=== PATIENT | female | born 1990 | race Caucasian/White ===

== ENCOUNTER 2019-08-17 16:45 | Observation (INO) | payer BC, MEDICAID ==
[~2019-08-17] VITALS: Ht 170.2 cm; Wt 70.8 kg
[2019-08-17 16:52] VITALS: BP 149/78
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
--- NOTE | 2019-08-17 17:04 | NUR ---
Dr. Cochran is evaluating the patient at bedside.
[2019-08-17] MEDS ORDERED: ACETAMINOPHEN EXTRA STRENGTH 500 MG TAB PO ONE (17:10)
[2019-08-17] MEDS ORDERED: NACL 0.9% 1,000 ML IV ONE (17:10)
[2019-08-17] MEDS ORDERED: METOCLOPRAMIDE 10 MG/2 ML INJ VIAL IVP ONE (17:10)
--- NOTE | 2019-08-17 17:21 | NUR ---
US AT BEDSIDE
--- NOTE | 2019-08-17 18:20 | NUR ---
PT C/O ANXIETY & WANT MED FOR ANXIETY.NOTIFIED DR MOFFETT.PT STATED" I WANT TO GO OUT SIDE, I NEED AIR".
--- NOTE | 2019-08-17 18:21 | NUR ---
Patient being evaluated by DR MOFFETT at bedside.
[2019-08-17] MEDS ORDERED: PREN-556 PO (18:24)
[2019-08-17] MEDS ORDERED: LORazepam 2 MG/ML VIAL IVP ONE (18:25)
[2019-08-17] MEDS ORDERED: LORazepam 2 MG/ML VIAL ONE (18:28)
--- NOTE | 2019-08-17 18:49 | NUR ---
GOT ATIVAN 0.5 MG IV AT 18.29 PM. Patient appears to be resting comfortably in bed. Vital Signs within normal limits. Respirations even. WILL CONTINUE TO MONITOR.
--- NOTE | 2019-08-17 19:08 | NUR ---
Pt report given to [facility]. Transfer of care at this time.
--- NOTE | 2019-08-17 19:10 | NUR ---
RECEIVED BEDSIDE REPORT FROM JOSEY CUEVAS. ASSUMED CARE AT THIS TIME.
--- NOTE | 2019-08-17 19:49 | NUR ---
Patient being evaluated by at bedside.
--- NOTE | 2019-08-17 20:30 | NUR ---
Patient will be admitted to care of Dr. Bunch. Admited to [facility]. Will go to room 111B. Belongings list completed. Report to JOSEY Monae. transfer of care at this time
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
[2019-08-17 20:50] VITALS: BP 95/58
--- NOTE | 2019-08-17 22:30 | NUR ---
SEEN PT APPEARS TO BE SLEEPING. CALL LIGHT W/IN REACH. AT BEDSIDE BUT ALMOST LEAVING.
--- NOTE | 2019-08-18 00:20 | NUR ---
SEEN PT SLEEPING COMFORTABLY. CALL LIGHT W/IN REACH.
[2019-08-18 04:00] VITALS: BP 92/49
--- NOTE | 2019-08-18 04:00 | NUR ---
SEEN PT ASLEEP. AWAKEN PT. VITAL SIGNS CHECKED. PT DENIES ANY DISCOMFORT. PT ASKING WHAT TIME IS DOCTOR COMING IN. INFORMED HER THERE'S NO DEFINITE TIME BUT HE'LL PROBABLY COME IN THE MORNING. PT VERBALIZED UNDERSTANDING. PT DENIES ANY OTHER NEEDS. CALL LIGHT W/IN REACH.
[2019-08-18 05:11] LABS: BASOPHILS % (AUTO) 0.3 % (0.0-2.0); EOSINOPHILS # (AUTO) 0.1 K/uL (0-0.4); HEMATOCRIT 29.9 % (36-48); HEMOGLOBIN 10.2 g/dL (12.0-16.0); LYMPHOCYTES # (AUTO) 1.4 K/uL (2.5-16.5); LYMPHOCYTES % (AUTO) 22.5 % (20.5-51.1); MEAN CORPUSCULAR HEMOGLOBIN 30 pg (27-31); MEAN CORPUSCULAR HGB CONC 34 g/dL (33-37); MEAN CORPUSCULAR VOLUME 89.2 fL (80-94); MONOCYTES # (AUTO) 0.4 K/uL (0.8-1.0); MONOCYTES % (AUTO) 6.8 % (1.7-9.3); NEUTROPHILS # (AUTO) 4.2 K/uL (1.8-7.7); NEUTROPHILS % (AUTO) 69.4 % (42.2-75.2); PLATELET COUNT (AUTO) 164 K/uL (140-450); RED BLOOD CELL COUNT(AUTO) 3.35 MIL/uL (4.20-5.40); RED CELL DISTRIBUTION WIDTH 14.1 % (11.6-13.7); WHITE BLOOD COUNT (AUTO) 6.1 K/uL (4.8-10.8)
--- NOTE | 2019-08-18 05:55 | NUR ---
PT'S SPOUSE CAME IN TO SEE PATIENT.
--- NOTE | 2019-08-18 07:24 | NUR ---
RECEIVED REPORT FROM [employer] RN FOR CONTINUITY OF CARE. PT IS AAOX4, AMBULATORY WITH ASSISTANCE DUE TO BEING DIZZY FROM ANEMIA. PT SKIN IS INTACT, EXPLAINED POC TO PT AND PT VERBALIZED UNDERSTANDING. WILL ROUND FREQUENTLY ON PT. BED IN LOW POSITION, CALL LIGHT WITHIN REACH.
--- NOTE | 2019-08-18 07:25 | NUR ---
SEEN PT SLEEPING. REPORT GIVEN TO DAYSHIFT NURSE FOR CONTINUITY OF CARE.
[2019-08-18 08:00] VITALS: BP 102/52
--- NOTE | 2019-08-18 08:17 | NUR ---
PATIENT HAS BEEN SCREENED AND CATEGORIZED LOW NUTRITION RISK. PATIENT WILL BE SEEN WITHIN 7 DAYS OF ADMISSION. 08/24/[address]
--- NOTE | 2019-08-18 09:41 | NUR ---
PT RESTING IN BED. ALL NEEDS MET. WILL CONTINUE TO ROUND FREQUENTLY ON PT. BED IN LOW POSITION, CALL LIGHT WITHIN REACH.
--- NOTE | 2019-08-18 11:34 | NUR ---
PT SLEEPING. ALL NEEDS MET. WILL CONTINUE TO ROUND FREQUENTLY ON PT. BED IN LOW POSITION, CALL LIGHT WITHIN REACH.
--- NOTE | 2019-08-18 13:40 | NUR ---
PT RESTING. ALL NEEDS MET. WILL CONTINUE TO ROUND FREQUENTLY ON PT. BED IN LOW POSITION, CALL LIGHT WITHIN REACH.
--- NOTE | 2019-08-18 14:50 | NUR ---
PT DISCHARGED HOME FOR SELF CARE. PT SIGNED ALL DC PAPERWORK. PT VERBALIZED UNDERSTANDING. IV REMOVED WITH TIP INTACT. WRIST BAND REMOVED. ALL PERSONAL BELONGINGS TAKEN WITH PT. PT LEFT WITH AUNT. PT IN STABLE CONDITION.
--- NOTE | 2019-08-18 15:39 | NUR ---
[employer] Helper Note: SW attempted to conduct assessment with patient. Patient was in OR per patient's nurse. SW will follow up to complete assessment.
--- NOTE | 2019-08-21 13:01 | NUR ---
Late entry. Confirmed with RN that 0.9 NS 1000 ml IV completed at 1840
== END 2019-08-18 14:50 | disposition home or self-care (01) ==
LOC: MED 16:45 → MTU 20:10
PROVIDERS: ADMIT Obstetrics & Gynecology; ATTEND Obstetrics & Gynecology
DX: O26.892 Other specified pregnancy related conditions, second trimester (principal); O99.89 Other specified diseases and conditions complicating pregnancy, childbirth and the puerperium; R10.9 Unspecified abdominal pain; R51 Headache; O43.892 Other placental disorders, second trimester; Z3A.18 18 weeks gestation of pregnancy; V89.2XXA Person injured in unspecified motor-vehicle accident, traffic, initial encounter; Y93.89 Activity, other specified; Y92.410 Unspecified street and highway as the place of occurrence of the external cause
CPT/HCPCS: 36415; 76805; 85025; 85384; 86886; 86900; 86901; 87081; 96374; 96375; 99284; G0378; J2060; J2765; J7030; Q0092; 96361